=== PATIENT | female | born 1990 | race Two or more races ===

== ENCOUNTER 2021-05-27 13:46 | Emergency (ER) | payer BC ==
[2021-05-27 14:38] LABS: CHLORIDE,CL 105 mmol/L (98-107); SODIUM,NA 141 mmol/L (136-145)
--- NOTE | 2021-05-27 14:47 | CR ---
[id number] RAD/RAD Chest PA or AP 1V EXAM: SINGLE VIEW CHEST. INDICATION: COVID SHORTNESS OF BREATH COMPARISON: NO PREVIOUS SIMILAR EXAM IS AVAILABLE FINDINGS: There is an early infiltrate at the left base The cardiac silhouette is normal IMPRESSION: EARLY PNEUMONIA LEFT BASE Luis Parks MD 05/27/21 [id number] Thank you for allowing us to participate in the care of your patient.
--- NOTE | 2021-05-27 14:53 | EDM.PDOC ---
ED HPI GENERAL MEDICAL PROBLEM - General Stated Complaint: COVID+, SOB Time Seen by Provider: 05/27/21 13:55 Source of Information: Reports: Patient History Limitations: Reports: No Limitations - History of Present Illness INITIAL COMMENTS - FREE TEXT/NARRATIVE: Patient comes emergency department from home with complaints of shortness of breath and this patient on was diagnosed with Covid. She received monoclonal antibody therapy on Friday. She has been short of breath since the diagnosis of her Covid. Her fevers have actually improved. She has had no chest pain weakness dizziness lightheadedness. No palpitations. No syncope. She continues to be short of breath just as she was when she was diagnosed. This is not gotten worse. She has no pain in her chest. No abdominal pain na usea or vomiting. No hematuria dysuria urinary frequency. No black or tarry stools. No diarrhea. She has not Covid vaccinated. She is in the emergency department because she continues to be short of breath. There is no new or worsening pathology since her diagnosis reported by the patient. She has actually had improvement of the fever and myalgias since that time but her shortness of breath has been maintained. She has been drinking fluids. She has been urinating well. She has been eating food. - Related Data Allergies Allergy/AdvReac Type Severity Reaction Status Date / Time No Known Allergies Allergy Verified 05/27/21 19:44 ED ROS GENERAL - Review of Systems Review Of Systems: Comprehensive ROS is negative, except as noted in HPI. ED EXAM, GENERAL - Physical Exam Exam: See Below Free Text/Narrative:: She is clearly in no distress. She is able to speak in full sentences. Oxygen saturation is appropriate on room air. Exam Limited By: No Limitations General Appearance: Alert, WD/WN, No Apparent Distress Neck: Normal Inspection, Supple, Non-Tender, Full Range of Motion Respiratory/Chest: No Respiratory Distress, Normal Breath Sounds, No Accessory Muscle Use, Crackles (She does have some fine inspiratory crackles primarily in the central regions of the chest. No wheezing no retractions. No overt dyspnea). No: Respiratory Distress, Accessory Muscle Use Peripheral Pulses: 2+: Radial (L), Radial (R) GI/Abdominal: Normal Bowel Sounds, Soft, Non-Tender (Female) Exam: Deferred Rectal (Female) Exam: Deferred Back Exam: Normal Inspection, Full Range of Motion Extremities: Normal Inspection, No Pedal Edema, Normal Capillary Refill Neurological: Alert, Oriented, Normal Cognition, No Motor/Sensory Deficits Psychiatric: Normal Affect, Normal Mood Skin Exam: Warm, Dry, Intact, Normal Color Course - Vital Signs Last Recorded V/S: Last Vital Signs Temp 97.9 F 05/27/21 14:04 Pulse 111 H 05/27/21 14:04 Resp 17 05/27/21 14:04 BP 131/89 05/27/21 14:04 Pulse Ox 98 05/27/21 14:04 - Orders/Labs/Meds Labs: Laboratory Tests 05/27/21 05/27/21 05/27/21 Range/Units 14:03 14:03 14:03 WBC 6.2 (4.0-10.0) x10^3/uL RBC 5.34 (4.00-5.50) x10^6/uL Hgb 14.3 (12.0-16.0) g/dL Hct 42.4 (33.0-47.0) % MCV 79.4 (78.0-93.0) fL MCH 26.8 (26.0-32.0) pg MCHC 33.7 (32.0-36.0) g/dL RDW Coeff of Tigre 13.2 (10.0-15.0) % Plt Count 239 (130-400) x10^3/uL Immature Gran % (Auto) 0.00 (0.00-0.43) % Neut % (Auto) 53.8 (50.0-80.0) % Lymph % (Auto) 41.2 (25.0-50.0) % Finney % (Auto) 4.6 (2.0-11.0) % Eos % (Auto) 0.2 (0.0-4.0) % Baso % (Auto) 0.2 (0.2-1.2) % Neut # (Auto) 3.4 (1.8-7.7) x10^3/uL Lymph # (Auto) 2.6 (1.0-4.8) x10^3/uL Finney # (Auto) 0.3 (0.0-0.8) x10^3/uL Eos # (Auto) 0.0 (0.0-0.5) x10^3/uL Baso # (Auto) 0.0 (0.0-0.2) x10^3/uL Immature Gran # (Auto) 0.00 (0.00-0.07) x10^3/uL Sodium 141 (136-145) mmol/L Potassium 4.0 (3.5-5.1) mmol/L Chloride 105 (98-107) mmol/L Carbon Dioxide 24 (21-32) mmol/L Anion Gap 16.0 H (5-15) mmol/L BUN 12 (7-18) mg/dL Creatinine 0.8 (0.55-1.02) mg/dL Est Cr Clr Drug Dosing TNP Estimated GFR (MDRD) > 60 Glucose 97 (70-99) mg/dL Calcium 8.7 (8.5-10.1) mg/dL Corrected Calcium 9.2 (8.5-10.1) mg/dL Total Bilirubin 0.3 (0.2-1.0) mg/dL AST 43 H (15-37) U/L ALT 58 (14-59) U/L Alkaline Phosphatase 63 (46-116) U/L Troponin I High Sens < 4 (<=51) ng/L C-Reactive Protein 10.5 H (<=0.9) mg/dL NT-Pro-B Natriuret Pep 8 (<=125) pg/mL Total Protein 7.9 (6.4-8.2) g/dL Albumin 3.4 (3.4-5.0) g/dL Globulin 4.5 Albumin/Globulin Ratio 0.76 Procalcitonin 0.08 L (0.1-0.50) ng/mL Meds: Medications Discontinued Medications Generic Name Dose Route Start Last Admin Trade Name Freq PRN Reason Stop Dose Admin Albuterol 1 packet 05/27/21 15:20 Take Home: Albuterol 18 Gm Inhaler, 1 Inhaler Pack INH Q4H PRN Shortness of Breath Albuterol Confirm 05/27/21 15:43 05/27/21 15:50 Albuterol Hfa 18 Gm Inhaler Administered 05/27/21 15:44 1 amb a 1-u Dose Administration 18 gm .ROUTE .STK-MED ONE - Radiology Interpretation Free Text/Narrative:: 1 view chest x-ray initially reviewed extemporaneously by myself. Shows a possible early infiltrate in the left lower base. Chest x-ray per radiology shows an early pneumonia in the left base. - Re-Assessments/Exams Free Text/Narrative Re-Assessment/Exam: Laboratory evaluation shows an absolutely normal CBC. CMP with an anion gap of 16.0 otherwise normal. Her troponin is negative. Her CRP elevated at 10.5 most likely consistent with her Covid this process. Her procalcitonin is normal at 0.08. This patient has had clinical improvement to include her fevers. She is still short of breath. She does have an early infiltrate in the left lower base. Although this is like lateral in nature. It did not show on her chest x-ray bilateral infiltrates usually consistent with Covid. Although she has a normal white blood cell count and her procalcitonin is negative which does not lead me towards the presence of bacterial secondary infection for pneumonia. Her fevers have improved her other symptomology has improved clinically other than her shortness of breath that has been persistent but not worsening. At this time we will treat her symptomatically for viral pneumonia in the presence of Covid as she has no signs of secondary bacterial infection in the presence of Covid. She is not hypoxic therefore does not meet criteria for dexamethasone. We will treat her symptomatically with albuterol. She is comfortable this plan and her questions are answered. If it anytime she has double sickening type disease she should recheck in the clinic and repeat her chest x-ray as well procalcitonin to determine secondary bacterial infection in the presence of viral pneumonia. Departure - Departure Time of Disposition: 14:51 Disposition: Home, Self-Care 01 Clinical Impression: COVID - Discharge Information Referrals: Angelica Serna MD [Primary Care Provider] - Additional Instructions: Make sure and drink plenty of fluids as much as possible. Tylenol as needed for pain fever discomfort. Vitamin C 1000 gram by mouth twice daily. Vitamin D daily Zinc 50mg daily OTC Albuterol 2 puffs every 4 hrs as needed for SOB or cough. Inhaler sent home from the ED. Return to the ED if new or worsening symptoms.
[2021-05-27] MEDS ORDERED: Take Home: Albuterol 18 GM Inhaler, 1 Inhaler Pack INH PRN (15:20)
[2021-05-27] MEDS ORDERED: Albuterol HFA 18 Gm Inhaler ONE (15:43)
== END 2021-05-27 15:42 | disposition home or self-care (01) ==
LOC: VM.ED 13:46
DX: U07.1 COVID-19 (principal)
CPT/HCPCS: 36415; 71045; 80053; 83880; 84145; 84484; 85025; 86140; 99284; 99285-25; A9270-GY